=== PATIENT | male | born 1990 | race Caucasian/White ===

== ENCOUNTER 2017-10-29 14:57 | Emergency (ER) | payer OTHER ==
[2017-10-29] MEDS: PERCOCET 5MG/325MG TAB PO (16:26)
[2017-10-29] MEDS: CEPHALEXIN 500 MG CAP PO (16:26)
== END 2017-10-29 16:28 | disposition home or self-care (01) ==
LOC: M ED 14:57
DX: S62.631A Displaced fracture of distal phalanx of left index finger, initial encounter for closed fracture (principal); S61.301A Unspecified open wound of left index finger with damage to nail, initial encounter; W23.0XXA Caught, crushed, jammed, or pinched between moving objects, initial encounter; Y92.59 Other trade areas as the place of occurrence of the external cause; Y99.0 Civilian activity done for income or pay; F17.290 Nicotine dependence, other tobacco product, uncomplicated
CPT/HCPCS: 73140

== ENCOUNTER 2018-01-12 19:56 | Emergency (ER) | payer OTHER, SELFPAY ==
[2018-01-12] MEDS: diphenhydrAMINE 25 MG CAP PO (23:27)
[2018-01-12] MEDS: CLINDAMYCIN 150 MG CAP PO (23:27)
== END 2018-01-12 23:38 | disposition home or self-care (01) ==
LOC: M ED 19:56
DX: L03.113 Cellulitis of right upper limb (principal); F17.210 Nicotine dependence, cigarettes, uncomplicated
CPT/HCPCS: 99283

== ENCOUNTER 2022-01-12 19:00 | Emergency (ER) | payer SELFPAY ==
[~2022-01-12] VITALS: Ht 177.8 cm; Wt 90.9 kg
[~2022-01-12 19:00] MED LIST: BENA25CA4 PO; CLEO300C2 PO; KEFL500C17 PO; PERC5TAB12 PO; TYLE500T78 PO
[2022-01-12 20:46] LABS: RSV AMPLIFICATION NEGATIVE (NEGATIVE)
[2022-01-12 22:50] VITALS: BP 119/68
== END 2022-01-13 00:02 | disposition left against medical advice (07) ==
LOC: M ED 19:00
DX: Z53.29 Procedure and treatment not carried out because of patient's decision for other reasons (principal)

== ENCOUNTER 2024-03-08 17:17 | Emergency (ER) | payer MEDICAID, SELFPAY ==
[~2024-03-08] VITALS: Ht 177.8 cm; Wt 100.3 kg
[2024-03-08 17:29] VITALS: BP 140/77; TEMP 97.8; O2SAT 97
[2024-03-08] MEDS: PROPARACAINE 0.5% OPHTH SOL 15ML OS ONE (18:22)
[2024-03-08] MEDS: FLUORESCEIN OPHTH 1MG STRIP OS ONE (18:22)
[2024-03-08] MEDS ORDERED: CYCL1SOL14 OS (18:24)
[2024-03-08] MEDS: CYCLOPENTOLATE 1% OPHTH SOLN 2ML BTL OS ONE (18:28)
== END 2024-03-08 18:36 | disposition home or self-care (01) ==
LOC: M ED 17:17
DX: H57.12 Ocular pain, left eye (principal); H53.142 Visual discomfort, left eye

== ENCOUNTER → 2025-01-11 | Outpatient (CLI) | payer MEDICAID ==
[~2025-01-11] MED LIST changes: +CYCL1SOL14 OS
== END ==
LOC: M RAD 08:46
DX: M54.50 Low back pain, unspecified (principal)